=== PATIENT | male | born 1945 | race Caucasian/White ===

== ENCOUNTER 2020-12-15 15:46 | Emergency (ER) | payer OTHER, SELFPAY ==
[2020-12-15 15:50] VITALS: BP 156/111; PULSE 69; RESP 17; TEMP 35.9; O2SAT 95
[2020-12-15 17:02] LABS: Add Urine Microscopic? YES; Appearance Urine Cloudy (Clear); Bacteria Urine Trace /hpf; Bilirubin Urine Negative (Negative); Blood Urine Negative (Negative); Color Urine Yellow (Yellow); Glucose Urine UA Negative (Negative); Ketones Urine Negative (Negative); Leukocyte Esterase Ur Negative LEU/UL (Negative); Mucus Urine Rare /lpf; Nitrate Urine Negative (Negative); Protein Urine 1+ mg/dL (Negative); RBC Urine 0-2 /hpf (0-2); Specific Grav Ur 1.019 (1.001-1.035); Squamous Epithelial Cell Urine Occasional /hpf (Few); WBC Urine 0-3 /hpf
--- NOTE | 2020-12-15 19:12 | ED.GENADULT ---
HPI - General Adult General Chief complaint: Urogenital-Male Stated complaint: painful urination Time Seen by Provider: 12/15/20 17:56 Source: patient History of Present Illness HPI narrative: Patient is 75 y/o male complaining of pain in his penis starting 3 days ago. He describes his pain as sharp and burning. He rates his pain as 7/10. Urination aggravates his pain. He states that he feels like he really has to push to urinate. He has no fever, chills or back pain. Related Data Home Medications Medication Instructions Recorded Confirmed doxazosin mg 12/15/20 finasteride mg 12/15/20 glimepiride mg 12/15/20 glimepiride mg 12/15/20 lisinopril-hydrochlorothiazide tablet 12/15/20 lovastatin mg 12/15/20 12/15/20 metformin mg 12/15/20 Allergies Allergy/AdvReac Type Severity Reaction Status Date / Time cephalexin Allergy Unknown Verified 10/09/15 10:06 Review of Systems Constitutional: Constitutional: Denies chills, Denies fever(s), Denies headache(s) and Denies weakness Eyes: Eyes: Denies blurry vision ENT: Denies headache(s) and Denies neck pain Cardiovascular: Cardiovascular: Denies chest pain and Denies dyspnea Respiratory: Respiratory: Denies cough and Denies dyspnea Gastrointestinal: Gastrointestinal: Denies abdominal pain, Denies diarrhea, Denies nausea and Denies vomiting Genitourinary: Genitourinary: Reports as per HPI, Denies hematuria, Reports genital pain and Reports dysuria Musculoskeletal: Musculoskeletal: Denies back pain and Denies neck pain Neurologic: Denies headache(s) and Denies weakness [facility] Family History Family History Other Hypertension Social History Social History Smoking status: Former smoker Second hand tobacco smoke exposure: No Smoking end date: 09/25/84 Alcohol intake: never Gender identity (if verbalized by the patient): Male Exam Const: General: no acute distress and well developed Orientation/consciousness: oriented to person, oriented to place, oriented to time and patient oriented x3 HENMT: Head: normocephalic Ears: external ears normal General nose exam: Normal external nose present Eyes: General: appearance normal, both eyes and all related structures Conjunctivae: conjunctivae normal Neck: Neck: normal visual inspection and full ROM Chest: Chest palpation & inspection: normal inspection of the chest and no tenderness Resp: Effort & Inspection: normal respiratory effort Auscultation: clear to auscultation bilaterally Cardio: Rate: regular rate Rhythm: regular rhythm GI: GI Palp: No abdominal tenderness and Yes Soft to palpation : Male General Exam: Yes normal external exam Penis: Yes normal penis Skin: General skin exam: normal color and turgor normal Neuro: General: oriented to person, oriented to place, oriented to time and patient oriented x3 Cognition (Neuro): normal cognition Extrem: General: normal to inspection, full ROM and no pedal edema Psych: Appearance: grossly normal Mental Status: mental status grossly normal Affect: normal affect Course Consultations Consultation #1: Discussed with Dr. Valdes, who recommend empirical antibiotics for prostatitis Date: 12/15/20 Time: 21:06 Vital Signs Vital signs: Vital Signs Temperature 35.9 C L 12/15/20 15:50 Pulse Rate 69 12/15/20 15:50 Respiratory Rate 17 12/15/20 15:50 Blood Pressure 156/111 H 12/15/20 15:50 Pulse Oximetry 95 12/15/20 15:50 Temperature 36.6 C 12/15/20 21:27 Pulse Rate 72 12/15/20 21:27 Respiratory Rate 16 12/15/20 21:27 Blood Pressure 119/75 12/15/20 21:27 Pulse Oximetry 97 12/15/20 21:27 Medical Decision Making Vital Signs Vital Signs: Vital Signs Temperature 35.9 C L 12/15/20 15:50 Pulse Rate 69 12/15/20 15:50 Respiratory Rate 17 12/15/20 15:50 Blood Pressure 156/111 H 12/15/20 15:5
[2020-12-15 19:17] LABS: Basophils Absolute Auto 0.1 K/mm3 (0.0-0.1); Basophils Percent Auto 0.7 % (0.2-1.2); Eosinophils Absolute Auto 0.1 K/mm3 (0-0.3); Eosinophils Percent Auto 0.8 % (0-4.4); Hematocrit 37.4 % (42.0-52.0); Hemoglobin 12.7 g/dL (14.0-18.0); Immature Granulocyte Absolute 0.04 K/mm3 (0.00-0.031); Immature Granulocyte Percent A 0.4 % (0-0.5); Lymphocytes Absolute Auto 2.58 K/mm3 (0.9-3.2); Lymphocytes Percent Auto 26.1 % (18.3-44.2); Mean Corpuscular Hemoglobin 31.9 pg (26-34); Mean Platelet Volume 9.7 fl (7.4-10.4); Monocytes Absolute Auto 0.8 K/mm3 (0.1-0.6); Monocytes Percent Auto 7.6 % (2.6-8.5); Neutrophils Absolute Auto 6.4 K/mm3 (1.3-6.7); Neutrophils Percent Auto 64.4 % (45.5-73.1); Platelet Count Result 202 k/mm3 (150-375); Red Blood Count 3.98 M/mm3 (4.6-6.20); Red Cell Distribution Width 14.6 % (11.5-14.5); White Blood Count 9.9 K/mm3 (4.5-10.0)
[2020-12-15 19:32] LABS: Anion Gap 8 mmol/L (8-16); Blood Urea Nitrogen 19 mg/dL (9-20); Calcium 9.1 mg/dL (8.4-10.2); Carbon Dioxide 32 mmol/L (22-30); Chloride 102 mmol/L (98-107); Estimated CRCL calculation 70 ml/min; Estimated Glomerular Filt Rate > 60; Glucose 142 mg/dL (75-110); Potassium 3.6 mmol/L (3.4-5.0); Sodium 142 mmol/L (137-145)
--- NOTE | 2020-12-15 20:43 | PC.NURSE ---
Bladder scanned post void. 43ml in bladder. notified.
[2020-12-15 21:27] VITALS: BP 119/75; PULSE 72; RESP 16; TEMP 36.6; O2SAT 97
[2020-12-15] MEDS: CIPROFLOXACIN 500 MG TAB PO (21:27)
== END 2020-12-15 21:39 | disposition home or self-care (01) ==
PROVIDERS: Emergency Provider Emergency Medicine; PCP Internal Medicine
DX: N41.9 Inflammatory disease of prostate, unspecified (principal); Z87.891 Personal history of nicotine dependence
CPT/HCPCS: 36415; 80048; 81001; 85025; 99283; A9270

== ENCOUNTER 2021-05-24 13:46 | Inpatient (IN) | payer OTHER, SELFPAY ==
[2021-05-24] VITALS (27 sets, daily range): BP systolic 133–153; BP diastolic 56–84; PULSE 81–91; RESP 16–32; TEMP 36.6–39.1; O2SAT 89–97
--- NOTE | ~2021-05-24 | CT_ITS ---
EXAMINATION: CT abdomen pelvis w con DATE: 05/24/2021 16:27 INDICATION: Low abdominal pain. TECHNIQUE: Computed tomography (CT) of the abdomen and pelvis was performed with 100 mL Omnipaque 350 intravenous contrast. Automated exposure control and iterative reconstruction technique were employe d. The dose-length product was 1208.21 mGy-cm. COMPARISON: CT abdomen and pelvis 11/02/2015 FINDINGS: The visualized portions of the lung bases demonstrate emphysema and mild chronic interstiti al lung disease. No pleural effusion. The heart size is normal. There are coronary artery calcificati ons. No pericardial effusion. The liver, gallbladder, spleen, and pancreas are normal. There is a 5 m m mass of fat in left adrenal gland, consistent with a myelolipoma. There are dystrophic calcificatio ns right adrenal gland. There are cysts in the kidneys measuring up to 2.4 cm on the left. There is d iffuse bladder wall thickening. There is fat stranding around the bladder. The prostate is severely e nlarged. There is diverticulosis of the colon without evidence of diverticulitis. The appendix is nor mal. There are no pathologically enlarged lymph nodes. There is no free intraperitoneal fluid. There is severe lumbar spondylosis. IMPRESSION: 1. Cystitis. 2. Severely enlarged prostate. Reviewed, dictated and finalized at location A.
[2021-05-24 14:49] LABS: Basophils Percent Auto 0.4 % (0.2-1.2); Hematocrit 34.1 % (42.0-52.0); Hemoglobin 11.5 g/dL (14.0-18.0); Immature Granulocyte Absolute 0.06 K/mm3 (0.00-0.031); Immature Granulocyte Percent A 0.5 % (0-0.5); Lymphocytes Absolute Auto 1.45 K/mm3 (0.9-3.2); Lymphocytes Percent Auto 12.8 % (18.3-44.2); Mean Corpuscular HGB Conc 33.7 g/dl (32-36); Mean Corpuscular Hemoglobin 32.8 pg (26-34); Mean Corpuscular Volume 97.2 fl (80-100); Mean Platelet Volume 10.4 fl (7.4-10.4); Monocytes Absolute Auto 1.4 K/mm3 (0.1-0.6); Monocytes Percent Auto 12.4 % (2.6-8.5); Neutrophils Absolute Auto 8.4 K/mm3 (1.3-6.7); Neutrophils Percent Auto 73.9 % (45.5-73.1); Platelet Count Result 204 k/mm3 (150-375); Red Blood Count 3.51 M/mm3 (4.6-6.20); Red Cell Distribution Width 14.8 % (11.5-14.5); White Blood Count 11.3 K/mm3 (4.5-10.0)
[2021-05-24 14:59] LABS: Alanine Aminotransferase 16 U/L (4-50); Albumin Level 4.4 g/dL (3.5-5.1); Alkaline Phosphatase 48 U/L (38-126); Anion Gap 9 mmol/L (8-16); Aspartate Amino Transferase 23 U/L (17-59); Bilirubin,Total 0.7 mg/dL (0.2-1.3); Blood Urea Nitrogen 21 mg/dL (9-20); Calcium 9.2 mg/dL (8.4-10.2); Carbon Dioxide 31 mmol/L (22-30); Chloride 98 mmol/L (98-107); Estimated Glomerular Filt Rate > 60; Glucose 116 mg/dL (65-110); Lipase 26 U/L (23-300); Potassium 3.4 mmol/L (3.4-5.0); Sodium 138 mmol/L (137-145)
[2021-05-24 15:19] LABS: Add Urine Microscopic? YES; Appearance Urine Cloudy (Clear); Bacteria Urine 2+ /hpf; Bilirubin Urine Negative (Negative); Blood Urine 2+ (Negative); Color Urine Amber (Yellow); Glucose Urine UA Negative (Negative); Ketones Urine Negative (Negative); Leukocyte Esterase Ur 3+ LEU/UL (Negative); Mucus Urine Rare /lpf; Nitrate Urine Positive (Negative); Protein Urine 2+ mg/dL (Negative); RBC Urine 21-50 /hpf (0-2); Specific Grav Ur 1.014 (1.001-1.035); Squamous Epithelial Cell Urine Rare /hpf (Few); Urobilinogen Urine Negative mg/dL (<2.0); WBC Urine >75 /hpf
--- NOTE | 2021-05-24 15:47 | ECG_ITS ---
Measurements Intervals [place] Rate: 87 P: -14 [place]: 184 QRS: 69 QRSD: 117 T: 41 QT: 356 QTc: 430 Interpretive Statements SINUS RHYTHM INTRAVENTRICULAR CONDUCTION DELAY BASELINE ARTIFACT- V5 BORDERLINE ECG Electronically Signed On 05-24-2021 16:24:50 CDT by Rey Miller D.O.
[2021-05-24] MEDS: SODIUM CHLORIDE 0.9% IV 1,000 ML 999 ML IV CONT (15:59)
--- NOTE | 2021-05-24 16:05 | ED.ABDPAIN ---
HPI - Abdominal Pain General Chief Complaint: Abdominal Pain Stated Complaint: abd pain/back pain Source: patient and family Limitations: no limitations History of Present Illness HPI narrative: Patient 76 years old white male brought to the emergency room by his daughter. Complaining of feeling sick, fever, chills, burning urination and the frequency later started having lower back pain radiating to the lower abdomen bilaterally. Patient denies any nausea or vomiting. Patient declined to go to urgent care 2 to 3 days ago, today developed lightheadedness and was about to lose his balance with general weakness. Patient lives with his grandson who is rarely there. Patient is fully vaccinated for COVID-19. History of lymphoma in remission. Related Data Allergies Allergy/AdvReac Type Severity Reaction Status Date / Time cephalexin Allergy Severe SWELLING Verified 04/05/21 10:46 Review of Systems Review of Systems: CONSTITUTIONAL: Denies fever, chills, or sweats. EYES: Denies visual changes, redness, or discharge. ENT: Denies rhinorrhea, congestion, sore throat, or otalgia. CARDIOVASCULAR: Denies chest pain, palpitations, or edema. RESPIRATORY: Denies cough or dyspnea. GASTROINTESTINAL: Denies abdominal pain, nausea, vomiting, or diarrhea. GENITOURINARY: Denies dysuria or hematuria. SKIN: Denies rash or itching. MUSCULOSKELETAL: Denies back pain, joint pain, or myalgia. NEUROLOGIC: Denies headache, numbness, or weakness. PSYCHIATRIC: Denies anxiety or depression. PMFSH Past Medical History Medical History Diabetes mellitus History of malignant lymphoma Hyperlipidemia Obesity Family History Family History Other Hypertension Social History Social History Smoking status: Former smoker Tobacco type: cigarettes Second hand tobacco smoke exposure: No Smoking end date: 09/25/84 Alcohol intake: never Substance use: never Substance use type: does not use Gender identity (if verbalized by the patient): Male Exam Narrative: General appearance: Well-developed, well-nourished Skin: Normal color Head: Normocephalic, nontraumatic Eyes: Clear conjunctiva ENT: Oropharynx normal, ears normal, nose normal Neck: Supple, nontender Chest and respiratory: Airway patent, no respiratory distress, no accessory muscle use Heart: Regular rate/rhythm Abdomen: Soft, nontender, no organomegaly, quiet bowel sounds Vascular: Normal peripheral pulses, normal capillary refill. Musculoskeletal: Normal range of motion, nontender back Neurologic: Alert and oriented ?3, UTILITY WORK[employer] is normal as tested, no gross motor deficit Course Course Emergency Course: Stable Vital Signs Vital signs: Vital Signs Temperature 38.6 C H 05/24/21 13:52 Pulse Rate 91 05/24/21 13:52 Respiratory Rate 16 05/24/21 13:52 Blood Pressure 151/56 H 05/24/21 13:52 Pulse Oximetry 94 05/24/21 13:52 Temperature 39.1 C H 05/24/21 14:38 Pulse Rate 91 05/24/21 14:38 Respiratory Rate 16 05/24/21 14:38 Blood Pressure 153/84 H 05/24/21 14:38 Pulse Oximetry 93 05/24/21 14:38 MDM - Abdominal Pain MDM Narrative Medical decision making narrative: Urinary tract infection is my concern. Labs, CBC, UA, IV fluid Tylenol orally. Further plan to follow. Work-up showed urinary tract infection, patient is allergic to cephalexin, Levaquin started. CT abdomen pelvis with IV contrast ordered to make sure nothing intra-abdominal causing his fever at this time. Differential Diagnosis Differential diagnosis: Likely abdo
[2021-05-24] MEDS: ACETAMINOPHEN 325 MG TABLET 650 MG PO (16:29)
[2021-05-24 16:31] LABS: Lactic Acid Reflex 1.1 mmol/L (0.7-2.1)
[2021-05-24 16:32] LABS: INR 1.1; Prothrombin Time 14.3 Seconds (11.1-14.7)
[2021-05-24 16:50] LABS: CRP 18.8 mg/dL (<1.0)
--- NOTE | 2021-05-24 17:02 | PC.NURSE ---
Meal tray ordered for patient.
--- NOTE | 2021-05-24 19:22 | PM.IMHP ---
H&P: HPI History of Present Illness Date/Time: 05/24/21 19:22 this is a 76-year-old male patient who has a history of lymphoma in remission. The patient was brought to the emergency room by his daughter. The patient had been feeling sick with fever and chills and burning urination with urinary frequency with lower back pain rating to his lower abdomen bilaterally. The patient declined to go to urgent care 2-3 days ago. However today he complained of some lightheadedness and was complaining of generalized weakness with balance issues. The patient lives with his grandson but the grandson is rarely at home. The patient has been fully vaccinated for COVID-19. Patient's white count is 11.3. H&H 11.5 and 34.1. CRP is 18.8. The patient was found to be positive for UTI. The patient was started on Levaquin. Blood and urine cultures are pending. The patient is being admitted to inpatient services on the date of service of 05/24/2020 Chief Complaint: Weakness back pain Review of Systems Review of Systems: All systems reviewed & are unremarkable except as noted in HPI and below Constitutional: Constitutional: Reports as per HPI and Reports no additional constitutional complaints Eyes: Eyes: Reports as per HPI and Reports no additional eye complaints ENT: Reports system reviewed and no additional complaints, except as documented and Reports Normal hearing present Cardiovascular: Cardiovascular: Reports no additional cardiovascular complaints Respiratory: Respiratory: Reports no additional respiratory complaints and Reports no additional respiratory complaints Gastrointestinal: Gastrointestinal: Reports as per HPI and Reports no additional gastrointestinal complaints Musculoskeletal: Musculoskeletal: Reports no additional musculoskeletal complaints Integumentary/Breasts: Skin/Breast: Reports system reviewed and no additional complaints, except as docu and Reports as per HPI Neurologic: Reports system reviewed and no additional complaints, except as documented, Reports as per HPI and Reports Normal hearing present Psychiatric: Psychiatric: Reports no additional psychiatric complaints and Reports as per HPI Endocrine: Endocrine: Reports no additional endocrine complaints Hematologic/Lymphatic: Hematologic/Lymphatic: Reports no additional hematologic/lymphatic complaints Allergic/Immunologic: Allergic/Immunologic: Reports no additional allergic/immunologic complaints [facility] Past Medical History Medical History (Updated 05/24/21 @ 19:30 by Maria G Abarca NP) Diabetes mellitus History of malignant lymphoma In remission Hyperlipidemia Obesity Surgical History Surgical History (Updated 05/24/21 @ 19:30 by Maria G Abarca NP) History of removal of Port-a-Cath Family History Family History (Updated 05/24/21 @ 19:31 by Maria G Abarca NP) Father Acute myocardial infarction Mother Motor vehicle accident Other Hypertension Social History Social History (Updated 05/24/21 @ 19:32 by Maria G Abarca NP) Social History: The patient is . He has 3 children. He lives with a grandson who is rarely at home. The patient is listed as a DNR. The patient is a retired hand trucker. The patient does not use any alcohol marijuana or illicit drugs. The daughter is the durable power contracts attorney for healthcare Smoking status: Former smoker Tobacco type: cigarettes Second hand tobacco smoke exposure: No Smoking end date: 09/25/84 Alcohol intake: never Substance use: never Substance use type: does not use Gender identity (if verbalized by the patient): Male Meds Home Medications and Allergies Home Medications Medication Instructions Recorded Confirmed Type triamcinolone acetonide 0.1 % 1 applic TOPICAL BID #80 gm 01/14/20 04/05/21 Rx topical cream doxazosin 4 mg tablet 4 mg PO DAILY #90 tablet 10/16/20 04/05/21 Rx glimepiride 2 mg tablet 2 mg PO QAM #90 tablet 10/16/20 04/05/21 Rx shola
[2021-05-24] MEDS: SODIUM CHLORIDE 0.9% IV 1,000 ML 125 ML IV CONT (21:27)
--- NOTE | 2021-05-24 21:32 | ADMGEN ---
This patient, Kapil Reynoso Sr., was admitted to Medical Room 240-01. Patient/family oriented to hospital policies and general routines including ID bracelet, bed and alarms, visiting hours, pain management, procedures, bathroom and other care routines, personal items, smoking policy, room service/diet, and visiting hours. Information on how to activate the Rapid Response Team has been discussed. Patient/Family are encouraged to report perceived risks to care and to ask questions if they do not understand what they are told or what they should do.
[2021-05-24 22:54] LABS: Glucose Point of Care 75 mg/dl (65-105)
[2021-05-25] VITALS (7 sets, daily range): BP systolic 94–112; BP diastolic 51–68; PULSE 75–103; RESP 20–24; TEMP 36.3–38.8; O2SAT 92–98; BMI 32.1
[2021-05-25 00:02] LABS: Glucose Point of Care 132 mg/dl (65-105)
[2021-05-25 06:36] LABS: Glucose Point of Care 105 mg/dl (65-105)
[2021-05-25] MEDS: DOXAZOSIN MESYLATE 4 MG TABLET PO (08:31)
[2021-05-25] MEDS: ASPIRIN 81 MG ENTERIC TABLET PO ×2 (08:31→17:35)
[2021-05-25] MEDS: GLIMEPIRIDE 2 MG TABLET PO (08:31)
[2021-05-25] MEDS: metFORMIN HCL 500 MG TABLET 1000 MG PO ×2 (08:31→17:34)
[2021-05-25] MEDS: lisinopriL 20 MG TABLET PO (08:31)
[2021-05-25] MEDS: hydroCHLOROthiazide 25 MG TABLET PO (08:31)
[2021-05-25] MEDS: FINASTERIDE 5 MG TABLET PO (08:32)
[2021-05-25 09:28] LABS: Hematocrit 33.1 % (42.0-52.0); Hemoglobin 10.8 g/dL (14.0-18.0); Mean Corpuscular HGB Conc 32.6 g/dl (32-36); Mean Corpuscular Hemoglobin 32.4 pg (26-34); Mean Corpuscular Volume 99.4 fl (80-100); Mean Platelet Volume 10.6 fl (7.4-10.4); Platelet Count Result 184 k/mm3 (150-375); Red Blood Count 3.33 M/mm3 (4.6-6.20); Red Cell Distribution Width 14.9 % (11.5-14.5); White Blood Count 11.4 K/mm3 (4.5-10.0)
[2021-05-25 09:53] LABS: Anion Gap 11 mmol/L (8-16); Blood Urea Nitrogen 22 mg/dL (9-20); Calcium 8.7 mg/dL (8.4-10.2); Carbon Dioxide 27 mmol/L (22-30); Chloride 100 mmol/L (98-107); Estimated CRCL calculation 53 ml/min; Estimated Glomerular Filt Rate > 60; Glucose 112 mg/dL (65-110); Magnesium 1.7 mg/dL (1.6-2.3); Potassium 3.1 mmol/L (3.4-5.0); Sodium 138 mmol/L (137-145)
--- NOTE | 2021-05-25 10:13 | PM.IMPN ---
Progress Note: A&P Assessment and Plan (1) Urinary tract infection: Qualifiers: Hematuria presence: without hematuria Urinary tract infection type: site unspecified Qualified Code(s): N39.0 - Urinary tract infection, site not specified Code(s): N39.0 - Urinary tract infection, site not specified Status: Acute Assessment and Plan: patient is a 76-year-old man with a history of diabetes, dyslipidemia, BPH on doxazosin, who presented to the emergency room with symptoms of fevers, chills, burning with urination which began about 2 weeks ago and gradually worsening the last 2-3 days. he bought some [id number] Pyridium with only minimal improvement of his symptoms. He did see a urologist about 9 months ago who started him on doxazosin for his urinary issues and it did help him until just recently. Patient's urinalysis is suspicious for UTI was started on IV Levaquin since he has an allergy to cephalexin. Patient is feeling better so will continue this therapy pending urine culture results. continue IV fluid hydration, check postvoid residuals and bladder scan treat fevers p.r.n. Tylenol q.4 hours continue monitoring. (2) Sepsis: Code(s): A41.9 - Sepsis, unspecified organism Status: Acute Assessment and Plan: patient meets criteria for sepsis with fevers up to 102?, leukocytosis, in the setting of urinary tract infection. continue monitoring for urine culture and blood culture results . make adjustments if necessary. Continue IV fluid hydration, monitoring vital signs, fever with antipyretics, monitor CBC daily (3) Benign essential hypertension: Code(s): I10 - Essential (primary) hypertension Status: Acute Assessment and Plan: Blood pressure slightly low this morning 100/55. Will continue with IV fluid hydration. IV antibiotics. Will hold patient's HCTZ since we are hydrating him. Continue lisinopril Continue with home medications. (4) BPH (benign prostatic hyperplasia): Code(s): N40.0 - Benign prostatic hyperplasia without lower urinary tract symptoms Status: Acute Assessment and Plan: continue doxazosin. Will start finasteride daily. Will check postvoid residual and bladder scan if retaining will place Dotson catheter or discussed with urology continue monitoring. (5) Hyperlipidemia: Qualifiers: Hyperlipidemia type: pure hypercholesterolemia Qualified Code(s): E78.00 - Pure hypercholesterolemia, unspecified Code(s): E78.5 - Hyperlipidemia, unspecified Status: Chronic Assessment and Plan: Continue with home medication (6) Diabetes mellitus: Qualifiers: Diabetes mellitus complication status: without complication Diabetes mellitus exterminator helper insulin use: without care home use Diabetes mellitus type: type 2 Qualified Code(s): E11.9 - Type 2 diabetes mellitus without complications Code(s): E11.9 - Type 2 diabetes mellitus without complications Status: Acute Assessment and Plan: Will hold the patient's oral glimepiride. DM Diet Glucose stable this morning at 112. Accu-Cheks AC and HS. Sliding scale insulin. Hypoglycemic protocol in place. (7) History of malignant lymphoma: Code(s): Z85.72 - Personal history of non-Hodgkin lymphomas Status: Acute Assessment and Plan: In remission. follow-up with outpatient physicians after discharge. Time Spent With Patient Time with patient: 25 - 35 minutes Subjective Date/time seen: 05/25/21 10:13 Interval history: Date of service 05/25/2021: [place]
[2021-05-25] MEDS: POTASSIUM CHLORIDE 20 MEQ TABLET 40 MEQ PO (11:10)
[2021-05-25] MEDS: MAGNESIUM SULFATE 3GM/D5W100ML 3 GM/100 ML BAG IVPB (11:11)
[2021-05-25] MEDS: ACETAMINOPHEN 500 MG TABLET 1000 MG PO ×2 (11:19→17:37)
[2021-05-25 12:15] LABS: Glucose Point of Care 204 mg/dl (65-105)
--- NOTE | 2021-05-25 12:17 | PC.NURSE ---
On 05/25/21, the student, Anselmo Anne, provided care and completed [facility] documentation on this patient. I have reviewed the student's documentation and agree with the findings.
[2021-05-25] MEDS: INSULIN ASPART (*BKC) 100 UNITS/ML SUB-Q (12:21)
[2021-05-25] MEDS: SODIUM CHLORIDE 0.9% IV 1,000 ML 125 ML IV CONT (15:18)
--- NOTE | 2021-05-25 17:49 | PCPTNOTE ---
On 05/25/21, the student, Rehan Ruvalcaba, provided care and completed [facility] documentation on this patient. I have reviewed the student's documentation and agree with the findings.
[2021-05-25 17:58] LABS: Glucose Point of Care 103 mg/dl (65-105)
[2021-05-25] MEDS: LOVASTATIN 20 MG TABLET PO (20:54)
[2021-05-25 21:23] LABS: Glucose Point of Care 98 mg/dl (65-105)
[2021-05-26] VITALS (13 sets, daily range): BP systolic 100–142; BP diastolic 58–69; PULSE 63–109; RESP 16–20; TEMP 36.1–36.9; O2SAT 96–98; BMI 34.4
--- NOTE | 2021-05-26 | ECHO_ITS ---
Patient Info Name: Kapil Reynoso Age: 76 years : 1945 Gender: Male Ht: 68 in Wt: 226 lbs BSA: 2.26 m2 HR: 116 bpm BP: 100 / 59 mmHg Heart Rhythm: Atrial Fibrillation Exam Date: 05/26/2021 12:44 PM Exam Location: [facility] Patient Status: Inpatient Admit Date: 05/26/2021 Staff Ordering Physician: Gaye Chase PA-C Medical Staff Credentialing Coordinator: Franco Kathleen RDCS, RT Attending Provider: Gaye Chase PA-C Referring Physician: Salvatore MERRITT; Exam Type: CA echo doppler color flow Study Info Indications I48.1 - Persistent atrial fibrillation Complete two-dimensional, color flow and Doppler transthoracic echocardiogram is performed with contrast to opacify the left ventricle and to improve the deliniation of the left ventricle endocardial borders. Summary 1. Left ventricular chamber dimension is normal. 2. Left ventricular systolic function is normal, estimated at 60-65%. 3. There is mildly increased left ventricular wall thickness. 4. The left ventricular diastolic function is indeterminate. 5. Right atrial chamber dimension is mildly enlarged. 6. There is no aortic valve stenosis. 7. There is trace mitral valve regurgitation. 8. There is trace tricuspid valve regurgitation. 9. No pulmonary hypertension, estimated pulmonary arterial systolic pressure is 24 mmHg. Left Ventricle Left ventricular chamber dimension is normal. Left ventricular systolic function is normal, estimated at 60-65%. There is mildly increased left ventricular wall thickness. The left ventricular diastolic function is indeterminate. Right Ventricle Right ventricular chamber dimension is normal. Right ventricular systolic function is normal. Left Atria Left atrial chamber dimension is normal. Right Atria Right atrial chamber dimension is mildly enlarged. Aortic Valve The aortic valve is trileaflet. There is mild aortic valve sclerosis. There is no aortic valve stenosis. There is no aortic valve regurgitation. Pulmonic Valve The pulmonic valve is not well visualized. Mitral Valve The mitral valve has normal leaflets. There is trace mitral valve regurgitation. The mitral valve annulus is mildly calcified. Tricuspid Valve The tricuspid valve leaflets are normal. There is trace tricuspid valve regurgitation. No pulmonary hypertension, estimated pulmonary arterial systolic pressure is 24 mmHg. Pericardium/Pleural The pericardium appears not well visualized. There is no pericardial effusion. Inferior Vena Cava Normal inferior vena cava with >50% collapse upon inspiration consistent with normal right atrial pressure, 5 mmHg. Aorta The aortic root size at the sinus of Valsalva is normal. There is mild aortic atherosclerosis. Left Ventricular Outflow Tract Name Value Normal LVOT 2D LVOT Diameter 2.0 cm LVOT Doppler LVOT Peak Gradient 2 mmHg LVOT Mean Gradient 1 mmHg LVOT VTI 16 cm LVOT VTI/AV VTI Ratio 0.7 LVOT Stroke Volume 51 ml LVOT CO
[2021-05-26] MEDS: MAG HYDROX/AL HYDROX/SIMETH 30 ML UDC PO (03:06)
[2021-05-26 05:43] LABS: Basophils Percent Auto 0.5 % (0.2-1.2); Eosinophils Percent Auto 0.5 % (0-4.4); Hematocrit 30.3 % (42.0-52.0); Hemoglobin 9.9 g/dL (14.0-18.0); Immature Granulocyte Absolute 0.05 K/mm3 (0.00-0.031); Immature Granulocyte Percent A 0.6 % (0-0.5); Lymphocytes Percent Auto 21.4 % (18.3-44.2); Mean Corpuscular HGB Conc 32.7 g/dl (32-36); Mean Corpuscular Hemoglobin 32.1 pg (26-34); Mean Corpuscular Volume 98.4 fl (80-100); Mean Platelet Volume 10.3 fl (7.4-10.4); Monocytes Absolute Auto 1.2 K/mm3 (0.1-0.6); Monocytes Percent Auto 14.6 % (2.6-8.5); Neutrophils Absolute Auto 5.2 K/mm3 (1.3-6.7); Neutrophils Percent Auto 62.4 % (45.5-73.1); Platelet Count Result 168 k/mm3 (150-375); Red Blood Count 3.08 M/mm3 (4.6-6.20); Red Cell Distribution Width 14.8 % (11.5-14.5); White Blood Count 8.4 K/mm3 (4.5-10.0)
[2021-05-26 05:59] LABS: Anion Gap 8 mmol/L (8-16); Blood Urea Nitrogen 29 mg/dL (9-20); Calcium 8.1 mg/dL (8.4-10.2); Carbon Dioxide 26 mmol/L (22-30); Chloride 102 mmol/L (98-107); Estimated CRCL calculation 49 ml/min; Estimated Glomerular Filt Rate 59; Glucose 101 mg/dL (65-110); Potassium 3.1 mmol/L (3.4-5.0); Sodium 136 mmol/L (137-145)
[2021-05-26 06:40] LABS: CRP 19.8 mg/dL (<1.0)
[2021-05-26 06:43] LABS: Glucose Point of Care 96 mg/dl (65-105)
[2021-05-26] MEDS: metFORMIN HCL 500 MG TABLET 1000 MG PO ×2 (08:07→16:56)
[2021-05-26] MEDS: FINASTERIDE 5 MG TABLET PO (08:07)
[2021-05-26] MEDS: lisinopriL 20 MG TABLET PO (08:07)
[2021-05-26] MEDS: DOXAZOSIN MESYLATE 4 MG TABLET PO (08:07)
[2021-05-26] MEDS: ASPIRIN 81 MG ENTERIC TABLET PO ×2 (08:07→16:56)
[2021-05-26] MEDS: ACETAMINOPHEN 500 MG TABLET 1000 MG PO (08:11)
--- NOTE | 2021-05-26 10:38 | ECG_ITS ---
Measurements Intervals [place] Rate: 92 P: [place]: 0 QRS: 65 QRSD: 112 T: 5 QT: 360 QTc: 446 Interpretive Statements ATRIAL FIBRILLATION MINIMAL Q WAVES- INFERIOR LEADS BASELINE ARTIFACT- II, III, AVF ABNORMAL ECG Electronically Signed On 05-26-2021 11:27:45 CDT by Rey Miller D.O.
--- NOTE | 2021-05-26 10:46 | PM.IMPN ---
Progress Note: A&P Assessment and Plan (1) New onset a-fib: Code(s): I48.91 - Unspecified atrial fibrillation Status: Acute Assessment and Plan: Her to be in irregular rhythm on examination. EKG was completed showing atrial fibrillation with a heart rate of 97 beats per minute. Telemetry showing atrial fibrillation with RVR, heart rate fluctuating between 120 beats per minute and on 100 beats per minute. Echocardiogram will be ordered Cardiology consultation placed Could be secondary to acute infection, but it is being treated correctly and he has remained afebrile for 24 hours He does state a history of being told he has ?flutter? but denies being on any type of blood thinner in the past. He does not have a radiologist diagnostic he follows up with Will start on Lovenox injections 1 milligram/kilogram q.12 until Cardiology can further make recommendations Will start metoprolol tartrate 12.5 mg q.12 hours for heart rate control Continue monitoring telemetry, appreciate cardiology's input. (2) Urinary tract infection: Qualifiers: Hematuria presence: without hematuria Urinary tract infection type: site unspecified Qualified Code(s): N39.0 - Urinary tract infection, site not specified Code(s): N39.0 - Urinary tract infection, site not specified Status: Acute Assessment and Plan: patient is a 76-year-old man with a history of diabetes, dyslipidemia, BPH on doxazosin, who presented to the emergency room with symptoms of fevers, chills, burning with urination which began about 2 weeks ago and gradually worsening the last 2-3 days. he bought some [id number] Pyridium with only minimal improvement of his symptoms. He did see a urologist about 9 months ago who started him on doxazosin for his urinary issues and it did help him until just recently. Patient's urinalysis is suspicious for UTI and growing E coli with sensitivity to IV Levaquin Patient is feeling better at this time and been afebrile for 24 hours Will discontinue IV fluids since he is eating and drinking well Postvoid residual showing retention of 200 cc, will recheck again today treat fevers p.r.n. Tylenol q.4 hours continue monitoring. (3) Sepsis: Code(s): A41.9 - Sepsis, unspecified organism Status: Acute Assessment and Plan: patient meets criteria for sepsis with fevers up to 102?, leukocytosis, in the setting of urinary tract infection. Vital stable other than being tachycardic in AFib RVR. Stable blood pressure, afebrile for 24 hours Will DC IV fluids at this time. Continue monitoring vital signs, fever with antipyretics, monitor CBC daily (4) Benign essential hypertension: Code(s): I10 - Essential (primary) hypertension Status: Acute Assessment and Plan: Blood pressure slightly low this morning 100/55. Will continue with IV fluid hydration. IV antibiotics. Will hold patient's HCTZ since we are hydrating him. Continue lisinopril Continue with home medications. (5) BPH (benign prostatic hyperplasia): Code(s): N40.0 - Benign prostatic hyperplasia without lower urinary tract symptoms Status: Acute Assessment and Plan: continue doxazosin. Will start finasteride daily. Postvoid residual showing by 200 cc being retained if retaining will place Dotson catheter or discussed with urology continue monitoring. (6) Hyperlipidemia: Qualifiers: Hyperlipidemia type: pure hypercholesterolemia Qualified Code(s): E78.00 - Pure hypercholesterolemia, unspecified Code(s): E78.5 - Hyperlipidemia, unspecified Status: Chronic Assessment and Plan: Continue with home medication
[2021-05-26 11:50] LABS: Glucose Point of Care 136 mg/dl (65-105)
[2021-05-26] MEDS: PERFLUTREN LIPID MICROSPHERES 1.5 ML VIAL DILUTED TO 10 ML TOTAL VOLUME IV PUSH (12:50)
--- NOTE | 2021-05-26 13:18 | PC.NURSE ---
cannot give potassium, lovenox, and metoprolol until pharmacy sends them to me, pharmacy notified.
[2021-05-26] MEDS: METOPROLOL TARTRATE 12.5 MG TABLET PO ×2 (13:43→20:18)
[2021-05-26] MEDS: ENOXAPARIN 100 MG/ML SYRINGE SUB-Q ×2 (13:43→20:18)
--- NOTE | 2021-05-26 15:21 | PM.CNCAR ---
Assessment and Plan Assessment and plan (1) New onset a-fib: Code(s): I48.91 - Unspecified atrial fibrillation Status: Acute Assessment and Plan: New onset, asymptomatic atrial fibrillation with intermittent rapid ventricular response otherwise for heart rate control 90s to 120. BP somewhat marginal at present started on metoprolol 12.5 mg twice daily. Will up titrate as tolerated for heart rate control. CHADS2 Vasc score 4 systemic anticoagulation advised. Transition to oral anticoagulation Eliquis 5 mg b.i.d.. Concern with regards to anemia although no signs or symptoms active bleed. Anemia workup per primary service. Extensive discussion held with the patient with regards to pathophysiology management options including rate versus rhythm control, medications, anticoagulation with stroke versus bleeding risk. Patient verbalized understanding. All questions answered to his satisfaction. At this time will focus on rate control as he is asymptomatic and heart rate is not excessive. We discussed concept of cardioversion to restore sinus rhythm however a without favor proceeding at this time unless he is highly symptomatic and or refractory rapid ventricular response is noted. Will review 2D echocardiogram available. If significant LV dysfunction may offer more aggressive control once he is more fully recovered from sepsis. Will just medical therapy for purpose support in that regard. Patient denies prior known history of AFib/arrhythmia, CAD, myocardial infarction, CHF. Patient also endorses symptoms consistent with FINN. Will set up for apnea link screening overnight. Check TSH. (2) Benign essential hypertension: Code(s): I10 - Essential (primary) hypertension Status: Acute Assessment and Plan: Stable but somewhat marginal. Reduce Lisinopril to 10mg daily for now to allow BP for increase in BB. (3) Sepsis: Code(s): A41.9 - Sepsis, unspecified organism Status: Acute Assessment and Plan: blood cultures negative x2 thus far. Management per primary service. Continue antibiotics. (4) Urinary tract infection: Qualifiers: Hematuria presence: without hematuria Urinary tract infection type: site unspecified Qualified Code(s): N39.0 - Urinary tract infection, site not specified Code(s): N39.0 - Urinary tract infection, site not specified Status: Acute Assessment and Plan: E coli, see above. Antibiotics. (5) Anemia: Code(s): D64.9 - Anemia, unspecified Status: Acute Assessment and Plan: Mild decline since admission likely delusional, doubt acute blood loss, however, need to monitor closely. Follow H&H particularly with initiation of systemic anticoagulation. (6) Diabetes mellitus: Qualifiers: Diabetes mellitus complication status: without complication Diabetes mellitus jail insulin use: without vermin exterminator use Diabetes mellitus type: type 2 Qualified Code(s): E11.9 - Type 2 diabetes mellitus without complications Code(s): E11.9 - Type 2 diabetes mellitus without complications Status: Acute Assessment and Plan: Per primary service. (7) Hypokalemia: Code(s): E87.6 - Hypokalemia Status: Acute Assessment and Plan: Replete potassium to around 4.0 to help ensure control of AFib. KCL 40 mEq given this morning. He likely will require additional supplement. Check BMP in a.m.. Magnesium stable at 2.0.. History of Present Illness History of Present Illness Consult date/time: date of service:05/26/21 15:21 Cardiology consultation at the request of Gaye Chase for our opinion regarding new onset atrial fibrillation. Requesting physician: Gaye Chase PA-C Consult reason: atrial fibrillation Reason For Visit: Urinary tract infection Narrative: Patient is a pleasant 76-year-old male with past medical history for lymphoma in remission, diabetes mellitus, hypertension
[2021-05-26] MEDS: POTASSIUM CHLORIDE 20 MEQ TABLET 40 MEQ PO (16:55)
[2021-05-26 19:10] LABS: Glucose Point of Care 117 mg/dl (65-105)
[2021-05-26] MEDS: LOVASTATIN 20 MG TABLET PO (20:18)
[2021-05-26 20:44] LABS: Glucose Point of Care 122 mg/dl (65-105)
[2021-05-27] VITALS (7 sets, daily range): BP systolic 111–124; BP diastolic 60–63; PULSE 72–100; RESP 18–20; TEMP 36.1–36.4; O2SAT 87–97
[2021-05-27 05:56] LABS: Hematocrit 30.4 % (42.0-52.0); Hemoglobin 9.9 g/dL (14.0-18.0); Mean Corpuscular HGB Conc 32.6 g/dl (32-36); Mean Corpuscular Hemoglobin 32.6 pg (26-34); Mean Platelet Volume 10.8 fl (7.4-10.4); Platelet Count Result 199 k/mm3 (150-375); Red Blood Count 3.04 M/mm3 (4.6-6.20); Red Cell Distribution Width 14.8 % (11.5-14.5); White Blood Count 6.9 K/mm3 (4.5-10.0)
[2021-05-27 07:08] LABS: Anion Gap 9 mmol/L (8-16); Blood Urea Nitrogen 27 mg/dL (9-20); CRP 15.4 mg/dL (<1.0); Calcium 8.4 mg/dL (8.4-10.2); Carbon Dioxide 28 mmol/L (22-30); Chloride 106 mmol/L (98-107); Estimated CRCL calculation 57 ml/min; Estimated Glomerular Filt Rate > 60; Glucose 134 mg/dL (65-110); Potassium 3.6 mmol/L (3.4-5.0); Sodium 143 mmol/L (137-145)
[2021-05-27 08:05] LABS: Glucose Point of Care 138 mg/dl (65-105)
[2021-05-27] MEDS: ACETAMINOPHEN 500 MG TABLET 1000 MG PO (08:06)
[2021-05-27] MEDS: METOPROLOL TARTRATE 12.5 MG TABLET PO (08:07)
[2021-05-27] MEDS: lisinopriL 10 MG TABLET PO (08:07)
[2021-05-27] MEDS: FINASTERIDE 5 MG TABLET PO (08:07)
[2021-05-27] MEDS: DOXAZOSIN MESYLATE 4 MG TABLET PO (08:07)
[2021-05-27] MEDS: ENOXAPARIN 100 MG/ML SYRINGE SUB-Q (08:07)
[2021-05-27] MEDS: metFORMIN HCL 500 MG TABLET 1000 MG PO (08:07)
[2021-05-27] MEDS: ASPIRIN 81 MG ENTERIC TABLET PO (08:07)
--- NOTE | 2021-05-27 08:28 | PM.PNCARD ---
Progress Note: A&P Assessment and Plan (1) New onset a-fib: Code(s): I48.91 - Unspecified atrial fibrillation Status: Acute Assessment and Plan: New onset, asymptomatic atrial fibrillation with intermittent rapid ventricular response otherwise for heart rate control 90s to 120. CHADS2 Vasc score 4 systemic anticoagulation advised. Transition to oral anticoagulation Eliquis 5 mg b.i.d.. Concern with regards to anemia although no signs or symptoms active bleed. Anemia workup per primary service. Patient denies prior known history of AFib/arrhythmia, CAD, myocardial infarction, CHF. Converted to sinus rhythm last night around 0230 Continue metoprolol 12.5mg b.i.d Systemic a/c still advised - Start Eliquis 5mg b.i.d Echo showed normal LV systolic function with EF 60-65% (2) Benign essential hypertension: Code(s): I10 - Essential (primary) hypertension Status: Acute Assessment and Plan: Stable. SBP in 120's. (3) Sepsis: Code(s): A41.9 - Sepsis, unspecified organism Status: Acute Assessment and Plan: blood cultures negative x2 thus far. Management per primary service. Continue antibiotics. (4) Urinary tract infection: Qualifiers: Hematuria presence: without hematuria Urinary tract infection type: site unspecified Qualified Code(s): N39.0 - Urinary tract infection, site not specified Code(s): N39.0 - Urinary tract infection, site not specified Status: Acute Assessment and Plan: E coli, see above. Antibiotics. (5) Anemia: Code(s): D64.9 - Anemia, unspecified Status: Acute Assessment and Plan: Mild decline since admission likely dilutional, doubt acute blood loss, however, need to monitor closely. Follow H&H particularly with initiation of systemic anticoagulation. H&H stable today. (6) Diabetes mellitus: Qualifiers: Diabetes mellitus complication status: without complication Diabetes mellitus chcf insulin use: without marine oil terminal superintendent use Diabetes mellitus type: type 2 Qualified Code(s): E11.9 - Type 2 diabetes mellitus without complications Code(s): E11.9 - Type 2 diabetes mellitus without complications Status: Acute Assessment and Plan: Per primary service. (7) Hypokalemia: Code(s): E87.6 - Hypokalemia Status: Acute Assessment and Plan: K+ has been repleted. K+ 3.6 today. Subjective Date/time seen: 05/27/21 08:28 Cardiology follow-up for atrial fibrillation Date of service 05/27/2021: Denies any feelings of palpitations. Denies shortness of breath, chest pain. Overall feeling well today. Review of Systems Review of Systems: All systems reviewed & are unremarkable except as noted in HPI and below Constitutional: Constitutional: Reports as per HPI, Reports no additional constitutional complaints, Reports chills, Reports fatigue and Reports weakness Eyes: Eyes: Reports as per HPI and Reports no additional eye complaints ENT: Reports system reviewed and no additional complaints, except as documented and Reports as per HPI Cardiovascular: Cardiovascular: Reports as per HPI, Reports no additional cardiovascular complaints, Denies chest pain, Denies leg edema, Reports lightheadedness, Denies palpitations, Denies dyspnea and Denies dyspnea on exertion Respiratory: Respiratory: Reports as per HPI, Reports no additional respiratory complaints, Denies cough, Denies hemoptysis, Denies dyspnea and Denies dyspnea on exertion Gastrointestinal: Gastrointestinal: Reports as per HPI, Reports no additional gastrointestinal complaints, Reports abdominal pain, Denies melena, Denies bloating, Denies hematochezia, Denies heartburn, Denies nausea, Denies vomiting and Denies hematemesis Genitourinary: Genitourinary: Reports no additional male genitourinary complaints, Reports as per HPI, Denies hematuria, Reports dysuria, Reports flank pain and Reports urinary frequency
--- NOTE | 2021-05-27 09:42 | PM.DS ---
DS: Admitting Diagnosis Admitting Diagnosis Back pain and fever DS: Discharge Diagnosis Discharge Diagnosis (1) Pyelonephritis: Code(s): N12 - Tubulo-interstitial nephritis, not specified as acute or chronic Status: Acute Assessment and Plan: Patient is a 76-year-old man with a history of diabetes, dyslipidemia, BPH on doxazosin, who presented to the emergency room with symptoms of fevers, chills, burning with urination which began about 2 weeks ago and gradually worsening the last 2-3 days. he bought some [id number] Pyridium with only minimal improvement of his symptoms. He did see a urologist about 9 months ago who found to have a UTI and enlarged prostate started him on antibiotics and doxazosin for his urinary issues and it did help him until just recently. Initial vitals showed fever of 101.5?, elevated blood pressure 151/56, heart rate 91 beats per minute, normal respirations oxygenation on room air. Initial labs showed leukocytosis at 11,300, elevated neutrophils, normocytic anemia with a hemoglobin 11, hematocrit 34%. Normal coag panel. CT abdomen pelvis showed cystitis, severely enlarged prostate. Patient was admitted to the hospital for IV fluid hydration IV antibiotics for pyelonephritis. Patient's urinalysis is suspicious for UTI and growing E coli with sensitivity to IV Levaquin Patient is feeling better at this time and been afebrile for 48 hours Will continue on oral antibiotics Levaquin for a total of 10 days of treatment for pyelonephritis (2) New onset a-fib: Code(s): I48.91 - Unspecified atrial fibrillation Status: Acute Assessment and Plan: The patient was found to be in an irregularly irregular rhythm on examination on 05/26/2021. EKG was completed showing atrial fibrillation with a heart rate of 97 beats per minute. Telemetry showing atrial fibrillation with RVR, heart rate fluctuating between 120 beats per minute and on 100 beats per minute. Echocardiogram showed normal EF 60-65%, mild LVH, diastolic function is indeterminate, right atrial chamber is mildly enlarged. No pulmonary hypertension. Cardiology was consulted and recommended starting the patient on metoprolol, and anticoagulation with Eliquis. CHADS2 Vasc score 4 systemic anticoagulation advised. The patient converted back into normal sinus rhythm at to a.m.. Patient is now normal sinus rhythm with a controlled heart rate. Patient is stable at this time. Feeling well without any issues or concerns. Follow-up with cardiology in 1-2 weeks after discharge. Follow-up with primary care provider for further evaluation monitoring after discharge. Return ER warnings given. Patient understands and agrees the plan all questions answered. (3) Sepsis: Code(s): A41.9 - Sepsis, unspecified organism Status: Acute Assessment and Plan: patient meets criteria for sepsis with fevers up to 102?, leukocytosis, in the setting of urinary tract infection. Vital stable and feeling back to his baseline at this time. (4) Benign essential hypertension: Code(s): I10 - Essential (primary) hypertension Status: Acute Assessment and Plan: Blood pressure slightly low this morning 100/55. Will continue with IV fluid hydration. IV antibiotics. Continue home medications upon discharge. (5) BPH (benign prostatic hyperplasia): Code(s): N40.0 - Benign prostatic hyperplasia without lower urinary tract symptoms Status: Acute Assessment and Plan: continue doxazosin. Will start finasteride daily. Follow-up with his urologist for further evaluation monitoring (6) Hyperlipidemia: Qualifiers: Hyperlipidemia type: pure hyperch
== END 2021-05-27 12:30 | disposition home or self-care (01) | DRG 872 ==
LOC: ANHED 16:15 → ANH2MED 18:15
PROVIDERS: Internal Medicine Cardiovascular Disease; Physician Assistant; Admitting Provider Internal Medicine; Emergency Provider Emergency Medicine; PCP Internal Medicine; Visit Provider Internal Medicine
DX: A41.9 Sepsis, unspecified organism (principal); N12 Tubulo-interstitial nephritis, not specified as acute or chronic; B96.20 Unspecified Escherichia coli [E. coli] as the cause of diseases classified elsewhere; N40.0 Benign prostatic hyperplasia without lower urinary tract symptoms; I48.91 Unspecified atrial fibrillation; E87.6 Hypokalemia; D64.9 Anemia, unspecified; I10 Essential (primary) hypertension; E78.00 Pure hypercholesterolemia, unspecified; E11.9 Type 2 diabetes mellitus without complications; Z66 Do not resuscitate; Z79.899 Other long term (current) drug therapy; Z85.72 Personal history of non-Hodgkin lymphomas; Z87.891 Personal history of nicotine dependence; Z88.1 Allergy status to other antibiotic agents
CPT/HCPCS: 36415; 74177; 80048; 80053; 81001; 82948; 83605; 83690; 83735; 84443; 85025; 85027; 85610; 86140; 87040; 87077; 87086; 87088; 87186; 93005; 93306; 94762; 96361; 96365; 96366; 96375; 96376; 97161; 97165; 99285; A9270; G0378; J0131; J1650; J1815; J1956; J3475; J7030; Q9957; Q9967

== ENCOUNTER 2022-09-13 11:26 | Outpatient (CLI) | payer OTHER, SELFPAY ==
--- NOTE | ~2022-09-13 | XR_ITS ---
Right elbow Technique: AP, oblique, and lateral views were obtained. Clinical History: Pain Findings: No acute fracture or dislocation is seen. Osseous alignment is anatomic. Mild osteoarthriti c change of the elbow joint noted. There is no displacement of the fat pads, and soft tissues are unr emarkable. Impression: No acute fracture or dislocation. Mild osteoarthritic change. Reviewed, dictated and finalized at location . HERY EMPLOYEE Impression: No acute fracture or dislocation. Mild osteoarthritic change.
== END 2022-09-13 11:27 | disposition home or self-care (01) ==
PROVIDERS: PCP Family Medicine; Visit Provider Family Medicine
DX: M25.521 Pain in right elbow (principal); M19.021 Primary osteoarthritis, right elbow
CPT/HCPCS: 73080

== ENCOUNTER 2023-05-08 14:35 | Outpatient (CLI) | payer OTHER, SELFPAY ==
[2023-05-08 19:04] LABS: Basophils Absolute Auto 0.1 K/mm3 (0.0-0.1); Basophils Percent Auto 0.9 % (0.2-1.2); Eosinophils Absolute Auto 0.1 K/mm3 (0-0.3); Eosinophils Percent Auto 1.4 % (0-4.4); Hematocrit 37.3 % (42.0-52.0); Hemoglobin 12.5 g/dL (14.0-18.0); Immature Granulocyte Absolute 0.12 K/mm3 (0.00-0.031); Immature Granulocyte Percent A 1.2 % (0-0.5); Lymphocytes Absolute Auto 3.71 K/mm3 (0.9-3.2); Lymphocytes Percent Auto 37.8 % (18.3-44.2); Mean Corpuscular HGB Conc 33.5 g/dl (32-36); Mean Corpuscular Hemoglobin 33.1 pg (26-34); Mean Corpuscular Volume 98.7 fl (80-100); Mean Platelet Volume 11.6 fl (7.4-10.4); Monocytes Absolute Auto 0.8 K/mm3 (0.1-0.6); Monocytes Percent Auto 7.8 % (2.6-8.5); Neutrophils Percent Auto 50.9 % (45.5-73.1); Nucleated Red Blood Cells Perc 0.4 % (0.0-0.2); Platelet Count Result 233 k/mm3 (150-375); Red Blood Count 3.78 M/mm3 (4.6-6.20); Red Cell Distribution Width 16.4 % (11.5-14.5); White Blood Count 9.8 K/mm3 (4.5-10.0)
[2023-05-08 19:48] LABS: Creatinine Urine 25.3 mg/dL
[2023-05-08 19:50] LABS: Alanine Aminotransferase 26 U/L (6-50); Albumin Level 4.6 g/dL (3.5-5.1); Alkaline Phosphatase 59 U/L (38-126); Anion Gap 4 mmol/L (8-16); Aspartate Amino Transferase 77 U/L (17-59); Bilirubin,Total 0.6 mg/dL (0.2-1.3); Blood Urea Nitrogen 17 mg/dL (9-20); Calcium 9.5 mg/dL (8.4-10.2); Carbon Dioxide 37 mmol/L (22-30); Chloride 99 mmol/L (98-107); Cholesterol 134 mg/dL (0-200); Estimated Glomerular Filt Rate > 60; Glucose 62 mg/dL (65-110); HDL Direct 37 mg/dL; Potassium 3.7 mmol/L (3.4-5.0); Sodium 140 mmol/L (137-145); Triglycerides 86 mg/dL (<150)
[2023-05-08 19:53] LABS: MALB Creatinine Ratio 457.7 mg/g (0-30); Microalbumin Urine Random 115.8 mg/L (0-16.7)
[2023-05-08 20:02] LABS: LDL Cholesterol Direct 72 mg/dL
[2023-05-08 23:58] LABS: Hemoglobin A1C 6.4 % (<5.7)
== END 2023-05-08 14:36 | disposition home or self-care (01) ==
LOC: ANHGOSHLAB 14:37
PROVIDERS: PCP Family Medicine; Visit Provider Family Medicine
DX: Z13.228 Encounter for screening for other metabolic disorders (principal); Z13.220 Encounter for screening for lipoid disorders; E11.9 Type 2 diabetes mellitus without complications; R53.83 Other fatigue
CPT/HCPCS: 36415; 80053; 80061; 82043; 83036; 85025

== ENCOUNTER → 2023-09-20 10:39 | Outpatient (CLI) | payer OTHER, SELFPAY ==
--- NOTE | ~2023-09-20 | CT_ITS ---
EXAMINATION: CT hip RT wo con DATE: 09/20/2023 10:59 INDICATION: Right hip pain TECHNIQUE: High resolution computed tomography (CT) of the right hip was performed without intravenou s contrast. Additional sagittal and coronal reconstructions were performed. Automated exposure contro l and iterative reconstruction technique were employed. The dose-length product was 366.17 mGy-cm. COMPARISON: CT abdomen and pelvis dated 05/24/2021 FINDINGS: Bone alignment is normal. No fracture. 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 No right hip joint effus ion. There is unilateral interval widening of the right sacroiliac joint with new erosions along both the sacral and iliac sides of the right sacroiliac joint. There is some increased soft tissue densit y replacing the fat previously seen surrounding the neurovascular structures at the cephalad aspect o f the right sciatic notch. The contralateral left sacroiliac joint is unchanged with mild osteoarthri tis. Prostatomegaly. Prominent diverticulosis along the sigmoid and visualized distal descending colo n without adjacent from trace stranding to suggest diverticulitis. No pathologically enlarged pelvic or inguinal lymphadenopathy. IMPRESSION: 1. Asymmetric joint space widening and associated erosions at both sides of the right sacroiliac join t with suggestion of infiltrative soft tissue density extending inferiorly into the sciatic notch. Di fferential includes infectious septic sacroiliitis although given the infiltrating soft tissue densit y without significant surrounding inflammatory stranding would also consider malignancy such as recur rence of reported prior lymphoma. Of note the patient's white blood cell count was elevated at 17.2 o n a recent ureter as it 4 days prior for epistaxis. Dr. Calvo discussed these findings with the mt dical licensed loan officer assistant for Alison Romo at 3:30 PM. Reviewed, dictated and finalized at location A. CORNER FORMER MACHINE OPERATOR IMPRESSION: 1. Asymmetric joint space widening and associated erosions at both sides of the right sacroiliac joint with suggestion of infiltrative soft tissue density ext ending inferiorly into the sciatic notch. Differential includes infectious sept ic sacroiliitis although given the infiltrating soft tissue density without sig nificant surrounding inflammatory stranding would also consider malignancy such as recurrence of reported prior lymphoma. Of note the patient's white blood ce ll count was elevated at 17.2 on a recent ureter as it 4 days prior for epistax is. Dr. Calvo discussed these findings with the director biomedical engineering for Alison Perry Ma at 3:30 PM.
== END ==
PROVIDERS: PCP Orthopaedic Surgery; Visit Provider Family Medicine
DX: M25.551 Pain in right hip (principal); R93.6 Abnormal findings on diagnostic imaging of limbs
CPT/HCPCS: 73700

== ENCOUNTER 2024-01-30 11:05 | Outpatient (CLI) | payer MEDICARE, SELFPAY ==
--- NOTE | ~2024-01-30 | XR_ITS ---
Clinical Indication: Respiratory disease unspecified PA and lateral views of the chest: Comparison: None Findings: The lungs are clear, without evidence of focal consolidation or pleural effusion. Cardiome diastinal silhouette is within normal limits, with pacemaker device. Bones and soft tissues are unrem arkable. Impression: Normal chest. Reviewed, dictated and finalized at location . Impression: Normal chest.
== END 2024-01-30 11:06 ==
PROVIDERS: PCP Family Medicine; Visit Provider Family Medicine
DX: J39.8 Other specified diseases of upper respiratory tract (principal)
CPT/HCPCS: 71046

== ENCOUNTER 2024-03-14 14:39 | Outpatient (CLI) | payer MEDICARE, SELFPAY ==
[2024-03-14 15:17] LABS: Basophils Absolute Auto 0.1 K/mm3 (0.0-0.1); Basophils Percent Auto 0.7 % (0.2-1.2); Eosinophils Absolute Auto 0.2 K/mm3 (0-0.3); Eosinophils Percent Auto 2.3 % (0-4.4); Hematocrit 33.2 % (42.0-52.0); Immature Granulocyte Absolute 0.06 K/mm3 (0.00-0.031); Immature Granulocyte Percent A 0.8 % (0-0.5); Lymphocytes Percent Auto 35.8 % (18.3-44.2); Mean Corpuscular HGB Conc 33.1 g/dl (32-36); Mean Corpuscular Hemoglobin 33.2 pg (26-34); Mean Corpuscular Volume 100.3 fl (80-100); Mean Platelet Volume 10.1 fl (7.4-10.4); Monocytes Absolute Auto 0.6 K/mm3 (0.1-0.6); Monocytes Percent Auto 7.8 % (2.6-8.5); Neutrophils Absolute Auto 3.8 K/mm3 (1.3-6.7); Neutrophils Percent Auto 52.6 % (45.5-73.1); Platelet Count Result 255 k/mm3 (150-375); Red Blood Count 3.31 M/mm3 (4.6-6.20); White Blood Count 7.3 K/mm3 (4.5-10.0)
[2024-03-14 15:31] LABS: Alanine Aminotransferase 14 U/L (6-50); Albumin Level 4.3 g/dL (3.5-5.1); Alkaline Phosphatase 59 U/L (38-126); Anion Gap 5 mmol/L (4-12); Aspartate Amino Transferase 22 U/L (17-59); Bilirubin,Total 0.5 mg/dL (0.2-1.3); Blood Urea Nitrogen 11 mg/dL (9-20); Calcium 9.3 mg/dL (8.4-10.2); Carbon Dioxide 32 mmol/L (22-30); Chloride 103 mmol/L (98-107); Estimated Glomerular Filt Rate > 60; Glucose 64 mg/dL (65-110); Potassium 3.7 mmol/L (3.4-5.0); Sodium 140 mmol/L (137-145)
== END 2024-03-14 14:40 | disposition home or self-care (01) ==
PROVIDERS: PCP Family Medicine
DX: M46.40 Discitis, unspecified, site unspecified (principal); G06.2 Extradural and subdural abscess, unspecified
CPT/HCPCS: 36415; 80053; 85025